=== PATIENT | female | born 1985 | race African-American/Black ===

== ENCOUNTER 2024-06-08 09:46 | Emergency (ER) | payer SELFPAY ==
[~2024-06-08] VITALS: Ht 167.6 cm; Wt 74.8 kg
[2024-06-08 09:55] VITALS: PULSE 79; RESP 16; TEMP 98.2; O2SAT 100
[2024-06-08] MEDS ORDERED: PLAQUENIL200 MG PO (10:07)
[2024-06-08] MEDS ORDERED: PREDNISONE20 MG PO (10:07)
[2024-06-08] MEDS ORDERED: HYDROCODON-ACE1 EA11 PO (10:09)
[2024-06-08] MEDS ORDERED: ONDANSETRON ODT4 MG PO (10:16)
== END 2024-06-08 10:19 | disposition home or self-care (01) ==
LOC: FSED 09:51
DX: M32.9 Systemic lupus erythematosus, unspecified (principal); M25.542 Pain in joints of left hand; M25.541 Pain in joints of right hand; R11.0 Nausea
CPT/HCPCS: 99283

== ENCOUNTER 2024-09-02 16:53 | Emergency (ER) | payer SELFPAY ==
[~2024-09-02] VITALS: Ht 165.1 cm; Wt 74.6 kg
[~2024-09-02 16:53] MED LIST: HYDROCODON-ACE1 EA11 PO; ONDANSETRON ODT4 MG PO; PLAQUENIL200 MG PO; PREDNISONE20 MG PO
[2024-09-02] MEDS ORDERED: KETOROLAC TROMETHAMINE 30 MG/ML VIAL IV STA (17:28)
[2024-09-02] MEDS ORDERED: SODIUM CHLORIDE 0.9% 1000ML 1,000 ML IV ONE (17:30)
[2024-09-02] MEDS ORDERED: KETOROLAC TROMETHAMINE 60 MG/2 ML VIAL IM ONE (18:00)
[2024-09-02] MEDS: HYDROCODONE/APAP 5MG-325MG TAB PO ONE ×2 (18:05→18:29)
[2024-09-02] MEDS ORDERED: HYDROCODON-ACE1 EAC9 PEG (18:21)
[2024-09-02 18:34] VITALS: PULSE 80; RESP 16; TEMP 98.2; O2SAT 100
== END 2024-09-02 18:34 | disposition home or self-care (01) ==
LOC: FSED 16:55
DX: M32.9 Systemic lupus erythematosus, unspecified (principal); M25.48 Effusion, other site; J45.909 Unspecified asthma, uncomplicated; F17.210 Nicotine dependence, cigarettes, uncomplicated
CPT/HCPCS: 71046; 81003; 81025; 93005; 99283